=== PATIENT | male | born 1950 | race Caucasian/White ===

== ENCOUNTER 2020-06-23 23:55 | Emergency (ER) | payer MEDICARE, SELFPAY ==
--- NOTE | ~2020-06-23 | CT_ITS ---
EXAMINATION: CT brain wo con DATE: 06/24/2020 00:45 INDICATION: Weakness. Fall. TECHNIQUE: Computed tomography (CT) of the head was performed without intravenous contrast. The mA wa s adjusted according to patient size. Iterative reconstruction technique was employed. The dose-lengt h product was 756.67 mGy-cm. COMPARISON: None FINDINGS: There are scattered areas of low attenuation in the cerebral white matter. There is no intr acranial hemorrhage, acute infarction, or abnormal intracranial mass lesion. The ventricles are osiris l in size. There are likely changes of left ocular lens replacement surgery. There is mucosal thicken ing in the paranasal sinuses. There is sclerosis of the alan of right sphenoid sinus, consistent wit h chronic sinusitis. The mastoid air cells are normal. IMPRESSION: 1. Mild nonspecific cerebral white matter disease, which likely represents chronic small vessel ische wiliam disease. 2. Chronic sinusitis. Reviewed, dictated and finalized at location A. IMPRESSION: 1. Mild nonspecific cerebral white matter disease, which likely represents desk sergeant kemi small vessel ischemic disease. 2. Chronic sinusitis.
--- NOTE | ~2020-06-23 | CT_ITS ---
EXAMINATION: CT lumbar spine wo con DATE: 06/24/2020 00:46 INDICATION: Back pain. Fall. Weakness. TECHNIQUE: Computed tomography (CT) of the lumbar spine was performed without intravenous contrast. A utomated exposure control and iterative reconstruction technique were employed. The dose-length produ ct was 1492.47 mGy-cm. COMPARISON: None FINDINGS: There is 4 degrees levocurvature of lumbar spine. There is a chronic burst fracture of L4 w ith 2/5 loss of height and retropulsion of bone 3 mm into central spinal canal. There is a chronic bu rst fracture of L5 with 2/5 loss of height and retropulsion of bone 5 mm into central spinal canal. T here is mildly decreased disc height at L3-L4.. The following disc levels are specifically discussed: L1-L2: The disc is bulging. There is moderate bilateral facet joint osteoarthritis. There is mild luz elena ateral neural foraminal stenosis. There is mild central canal stenosis. L2-L3: The disc is bulging. There is moderate right and mild left facet joint osteoarthritis. There i s mild bilateral neural foraminal stenosis. There is mild central canal stenosis. L3-L4: The disc is bulging. There is severe bilateral facet joint osteoarthritis. There is moderate b ilateral neural foraminal stenosis. There is mild central canal stenosis. L4-L5: The disc is bulging. There is severe bilateral facet joint osteoarthritis. There is mild bilat eral neural foraminal stenosis. There is mild central canal stenosis. L5-S1: The disc is bulging. There is moderate right and severe left facet joint osteoarthritis. There is mild bilateral neural foraminal stenosis. There is mild central canal stenosis. IMPRESSION: 1. No acute fracture. 2. Moderate lumbar spondylosis. Reviewed, dictated and finalized at location A.
[2020-06-24 00:06] VITALS: BP 148/93; PULSE 91; RESP 18; TEMP 36.6; O2SAT 97
--- NOTE | 2020-06-24 00:18 | ECG_ITS ---
Measurements Intervals [place] Rate: 83 P: 13 IN: 143 QRS: 26 QRSD: 106 T: 28 QT: 392 QTc: 461 Interpretive Statements SINUS RHYTHM BASELINE ARTIFACT- I, II, III, AVR, AVL, AVF, V1-V6 NORMAL ECG Electronically Signed On 06-24-2020 7:13:06 CDT by Rich Sun D.O.
--- NOTE | 2020-06-24 00:25 | ED.WEAKNESS ---
HPI - Weakness General Chief complaint: Weakness Stated complaint: Fall Source: patient and EMS Mode of arrival: EMS Limitations: no limitations History of Present Illness HPI Narrative: This is a 69-year-old gentleman that presents after he had a fall out of his bed and hit his right forearm causing abrasion and a mild skin tear has good range of motion with no deformities of his right arm, the patient appears intoxicated he had 1 bottle of wine prior to going to bed earlier this evening. Currently not complaining of any chest pain, no shortness of breath no abdominal pain no headache no blurry vision. The patient is a chronic alcohol alcohol abuser and has been having some numbness and tingling in his lower extremities bilaterally although has good range of motion and good with good movement in his lower legs. Has been mentioning that he had a fall about 5 years ago while he was in [place] and since then has had some chronic low back issues and problems. Currently no fever chills no blurry vision no nausea vomiting no diarrhea constipation has a history of hypertension and chronic alcohol use. Also according to his primary care physician's notes he has been having a chronic peripheral neuropathy. MD Complaint: generalized weakness and numbness Onset (ago): month(s) Duration: intermittent Location: LLE and RLE Migration: none Severity: mild Quality: tingling and numbness Related Data Home Medications Medication Instructions Recorded Confirmed mecobalamin (vitamin B12) 1,000 1,000 mcg SUBLINGUAL DAILY 05/15/19 06/24/20 mcg disintegrating tablet,sublingual multivitamin,[id number] 1 tablet PO DAILY 05/15/19 06/24/20 thiamine HCl (vitamin B1) 100 mg 100 mg PO DAILY 05/15/19 06/24/20 tablet Allergies Allergy/AdvReac Type Severity Reaction Status Date / Time No Known Allergies Allergy Verified 05/15/19 10:30 Review of Systems Review of Systems: All systems reviewed & are unremarkable except as noted in HPI and below PMFSH Past Medical History Medical History Essential (primary) hypertension Neuropathy Family History Family History Mother Family history of malignant neoplasm Social History Social History Smoking status: Former smoker Second hand tobacco smoke exposure: No Smoking end date: 04/08/69 Alcohol intake: current Exam Const: General: no acute distress Limitations: altered mental status ( Appears intoxicated) HENMT: Head: normal to inspection Eyes: Conjunctivae: conjunctivae normal Pupils: Equal, round and reactive pupils present Direct Ophthalmoscopy: no photophobia Neck: Neck: normal visual inspection, no lymphadenopathy and no meningeal signs Chest: Chest palpation & inspection: normal inspection of the chest Resp: Effort & Inspection: normal respiratory effort Auscultation: clear to auscultation bilaterally Cardio: Rate: regular rate Rhythm: regular rhythm GI: GI Palp: Yes Soft to palpation Percussion: Yes normal to percussion Back/Spine/Pelvis: Back: no CVA tenderness Skin: General skin exam: normal color Other: skin tear and abrasion to his right forearm Neuro: General: moves all extremities, no meningeal signs and no focal motor deficits Extrem: General: normal to inspection and no pedal edema Psych: Appearance: disheveled Mental Status: mental status grossly normal Course Course Emergency Course: patient with some minor abrasion and skin tear to his right forearm, CT scans reviewed with patient and family as well as some lab results. Vital Signs Vital signs: Vital Signs Temperature 36.6 C 06/24/20 00:06 Pulse Rate 91 06/24/20 00:06 Respiratory Rate 18 06/24/20 00:06 Blood Pressure 148/93 H 06/24/20 00:06 Pulse Oximetry 97 06/24/20 00:06 Temperature 36.
[2020-06-24] MEDS: SODIUM CHLORIDE 0.9% IV 1,000 ML 999 ML IV CONT (00:50)
--- NOTE | 2020-06-24 01:00 | PC.NURSE ---
0101-Patient is unable to void at this time, urinal at bedside, patient will use call light to notify us when he is able to void.
[2020-06-24 01:07] LABS: Basophils Absolute Auto 0.05 K/mm3 (0.00-0.10); Basophils Percent Auto 0.6 % (0.0-1.0); Eosinophils Absolute Auto 0.13 K/mm3 (0.02-0.50); Eosinophils Percent Auto 1.7 % (1.0-6.0); Hematocrit 44.5 % (37.0-46.0); Hemoglobin 14.9 g/dL (12.4-15.3); Immature Granulocyte Absolute 0.05 K/mm3 (0.00-0.00); Immature Granulocyte Percent A 0.6 % (0.0-0.0); Lymphocytes Absolute Auto 1.89 K/mm3 (1.10-4.50); Lymphocytes Percent Auto 24.5 % (18.0-42.0); Mean Corpuscular HGB Conc 33.5 g/dL (32.0-36.0); Mean Corpuscular Hemoglobin 32.8 pg (27.0-31.0); Mean Platelet Volume 9.4 fl (8.7-11.0); Monocytes Absolute Auto 0.74 K/mm3 (0.10-0.90); Monocytes Percent Auto 9.6 % (2.0-11.0); Neutrophils Absolute Auto 4.9 K/mm3 (1.7-7.2); Platelet Count Result 195 K/mm3 (150-420); Red Blood Count 4.54 M/mm3 (4.70-6.10); White Blood Count 7.7 K/mm3 (4.8-10.8)
[2020-06-24 01:18] VITALS: BP 128/89; PULSE 88; RESP 20; O2SAT 98
[2020-06-24 01:26] LABS: Alanine Aminotransferase 89 U/L (16-63); Alkaline Phosphatase 57 U/L (46-116); Anion Gap 14 mmol/L (8-16); Aspartate Amino Transferase 66 U/L (15-37); Bilirubin,Total 0.4 mg/dL (0.00-1.00); Blood Urea Nitrogen 7 mg/dL (7-18); Calcium 8.4 mg/dL (8.5-10.1); Carbon Dioxide 25 mmol/L (21-32); Chloride 100 mmol/L (98-108); Creatine Kinase 247 U/L (39-308); Estimated CRCL calculation 76 ml/min; Estimated Glomerular Filt Rate > 60; Glucose 104 mg/dL (70-99); Lactic Acid Reflex 2.1 mmol/L (0.4-2.0); Osmolality Calculated 286 mOsm/kg (285-295); Potassium 3.8 mmol/L (3.5-5.1); Sodium 139 mmol/L (136-145); Troponin I 7.7 ng/L (0.00-60.4)
[2020-06-24 01:27] LABS: Ammonia < 10 umol/L (11-32)
[2020-06-24 01:28] LABS: Ethanol 204 mg/dL (0-6)
--- NOTE | 2020-06-24 01:33 | PC.NURSE ---
0015-Patients wounds cleaned on right arm, one small wound on upper right arm, one small wound on lower forearm. I used Safe cleanse, sterile 4x4's,and 3x8 in, 2x3 in telfa pads and wrapped it with 4in conforming stretchy wrap. Patient tolerated well.
[2020-06-24 01:39] LABS: Add Urine Microscopic? NO; Appearance Urine Clear (Clear); Bilirubin Urine Negative (Negative); Blood Urine Negative (Negative); Color Urine Yellow (Yellow); Glucose Urine UA Negative (Negative); Ketones Urine Negative (Negative); Leukocyte Esterase Ur Negative LEU/UL (Negative); Nitrate Urine Negative (Negative); Protein Urine Negative (Negative); Specific Grav Ur <= 1.005 (1.010-1.020); Urobilinogen Urine 0.2 mg/dL (0.2-1.0)
[2020-06-24 01:54] VITALS: BP 141/96; PULSE 93; RESP 20; TEMP 36.6; O2SAT 95
== END 2020-06-24 01:59 | disposition home or self-care (01) ==
PROVIDERS: Emergency Provider Emergency Medicine; PCP Internal Medicine
DX: F10.129 Alcohol abuse with intoxication, unspecified (principal); G62.9 Polyneuropathy, unspecified; R41.82 Altered mental status, unspecified; S51.811A Laceration without foreign body of right forearm, initial encounter; S50.811A Abrasion of right forearm, initial encounter; I10 Essential (primary) hypertension; Z87.891 Personal history of nicotine dependence; W06.XXXA Fall from bed, initial encounter
CPT/HCPCS: 36415; 70450; 72131; 80053; 80307; 81003; 82140; 82550; 83605; 84484; 85025; 87040; 93005; 96360; 99283; 99284; J7030

== ENCOUNTER 2021-10-10 10:49 | Outpatient (RCR) | payer MEDICARE, SELFPAY ==
--- NOTE | 2021-10-10 12:46 | PTOPEVAL ---
Thank you for referring Miguel A Carr to [facility].? The patient is scheduled to be seen for therapy? ____x/week for ___ weeks. Please review, sign, date and return this plan of care AJ. I agree with and certify that the following plan of care is medically necessary. Referring Physician Date Admitting Provider: Attending Provider: Ty Rodriguez Referring Provider: DEBBIE Outpatient Evaluation Start: 10/10/21 10:59 Freq: Status: Active Protocol: Document 10/10/21 11:05 Tj (Rec: 10/10/21 12:44 [facility] [email or web address]) Therapy Assessment Status Assessment Status Assessment Status Evaluation Outpatient Past Medical History Neurological History Hx Other Neurological Disorders Yes: peripheral neuropathy Cardiovascular History Hx Hypertension Yes Gastrointestinal History Hx Hernia Yes: Inguinal repair Evaluation Information Problem Diagnosis parkinsons Onset 09/28/21 Subjective Information patient reports he has been Query Text:As Reported By Patient/ having tremors for about 5 Family years. 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 he reports he used to be an avid runner. he reports he noticed his walking began to get slower and he began to fall. he reports he did notice his shuffling steps shortly after that incident. he reports he does still drive from time to time. he reports he struggles badly when having to get up in the middle of the night. he reports he sleeps in a recliner and uses a handheld urinal at night. he reports his most recent fall was about a month and a half ago. Prior Level of Function Comments Additional Prior Level of Function patient reports he has been Comments functionally declining for about 5-6 years. Pain Assessment Timing of Pain Assessment Timing of Pain Assessment Assessment Self Report Self Report Pain Level 0 Pain Score Pain Score 0: Self Report Lower Extremity Muscle Strength Testing General Lower Extremity Strength Gross Lower Extremity Strength 4/5 bilateral sitting hip flex 4+/5 bilateral knee flex and ext 4+/5 R ankle DF
--- NOTE | 2021-11-09 13:18 | PTOPEVAL ---
Thank you for referring Miguel A Carr to [facility].? The patient is scheduled to be seen for therapy? ____x/week for ___ weeks. Please review, sign, date and return this plan of care AJ. I agree with and certify that the following plan of care is medically necessary. Referring Physician Date Admitting Provider: Attending Provider: Ty Rodriguez Referring Provider: DEBBIE Outpatient Evaluation Start: 10/10/21 10:59 Freq: Status: Active Protocol: Document 11/09/21 11:00 Tj (Rec: 11/09/21 11:50 [facility] [id number]) Therapy Assessment Status Assessment Status Assessment Status Progress Outpatient Past Medical History Neurological History Hx Other Neurological Disorders Yes: peripheral neuropathy Cardiovascular History Hx Hypertension Yes Gastrointestinal History Hx Hernia Yes: Inguinal repair Evaluation Information Problem Diagnosis parkinsons Onset 09/28/21 Subjective Information patient reports he is Query Text:As Reported By Patient/ continuing to have trouble Family with walking mostly. he reports he gets stuck during turns and trying to get up and get going, as well as, going to sit. Pain Assessment Timing of Pain Assessment Timing of Pain Assessment Assessment Self Report Self Report Pain Level 0 Pain Score Pain Score 0: Self Report Balance Assessment Time Up Go (TUG) Timed Up and Go Test (TUG) (Seconds) 52 Assistive Devices None Comments CGA for safety. patient gets stuck during turns and takes several seconds to get started walking again. he shuffles feet during initial turn and then is completely stopped for several seconds. 5 Time Sit to Stand Time in Seconds 10 5 Time Sit to Stand Comments patient perform sit to stand Query Text:Normative Data: If Greater quicker and without UE assist Than 15 Seconds, 74% Increase Risk for to push up to standing. Recurrent Falls however, unsafe sitting to chair without using UE's to control descent and flopping into chair. Gait Assessment 2 Minute Walk 2 Minute Walk Test Comments no AD, patient completes 160ft in 2 minutes with 3 bouts of freezing during ambulation, poor foot/heel clearance, and shuffling when nearing his
--- NOTE | 2021-11-23 20:48 | PTOPEVAL ---
Thank you for referring Miguel A Carr to [facility].? The patient is scheduled to be seen for therapy? ____x/week for ___ weeks. Please review, sign, date and return this plan of care AJ. I agree with and certify that the following plan of care is medically necessary. Referring Physician Date Admitting Provider: Attending Provider: Ty Rodriguez Referring Provider: LynnPT Outpatient Evaluation Start: 10/10/21 10:59 Freq: Status: Active Protocol: Document 11/16/21 11:00 [facility] (Rec: 11/16/21 11:47 [facility] [email or web address]) Therapy Assessment Status Assessment Status Assessment Status Discharge Outpatient Past Medical History Neurological History Hx Other Neurological Disorders Yes: peripheral neuropathy Cardiovascular History Hx Hypertension Yes Gastrointestinal History Hx Hernia Yes: Inguinal repair Evaluation Information Problem Diagnosis parkinsons Onset 09/28/21 Subjective Information patient and reports Query Text:As Reported By Patient/ improvements seen in patient. Family he reports he has not fallen since beginning therapy. he reports he continues to be frustrated by his freezing episodes and not being able to walk. he reports he does not wanthis meds adjusted. Pain Assessment Timing of Pain Assessment Timing of Pain Assessment Assessment Self Report Self Report Pain Level 0 Pain Score Pain Score 0: Self Report Lower Extremity Muscle Strength Testing General Lower Extremity Strength Gross Lower Extremity Strength 4+/5 bilateral hip flex 5/5 bilateral hip abd sitting 5/5 bilateral knee flex and ext 4+/5 R ankle DF 4+/5 L ankle DF Balance Assessment Tinetti Balance Assessment Sitting Balance Steady, safe Ability to Arise Able, uses arms to help Attempts to Arise Arises on 1st attempt Immediate Standing Balance Steady w/o support Standing Balance Steady, wide stance Nudged Response Staggers, catches self Standing with Eyes Closed Steady Step Pattern Turning 360 Degrees Discontinuous steps Stability Turning 360 Degrees Unsteady, grabs/staggers Sitting Down Uses arms or unsteady Initiation of Gait Hesitancy, mult. attempts Right Foot Step Length Does not pass stance ft. Right Foot Step Height Does not clear floor Left Foot Step Length Does not pass stance foot Left Foot Step He
== END 2021-11-16 11:21 | disposition home or self-care (01) ==
LOC: CHSPT 10:49
PROVIDERS: PCP Internal Medicine
DX: G20 Parkinson's disease (principal); G62.1 Alcoholic polyneuropathy
CPT/HCPCS: 97110; 97116; 97162; 97530

== ENCOUNTER 2022-08-04 15:22 | Emergency (ER) | payer MEDICARE, SELFPAY ==
[2022-08-04 15:29] VITALS: BP 186/110; PULSE 93; RESP 20; TEMP 36.9; O2SAT 97
[2022-08-04 15:40] VITALS: PULSE 90
[2022-08-04] MEDS: LABETALOL HCL INJ 100 MG/20 ML VIAL 10 MG IV PUSH (15:47)
[2022-08-04] MEDS: SODIUM CHLORIDE 0.9% IV 1,000 ML 999 ML IV CONT (15:48)
[2022-08-04 16:09] LABS: Basophils Absolute Auto 0.05 K/mm3 (0.00-0.10); Basophils Percent Auto 0.5 % (0.0-1.0); Eosinophils Absolute Auto 0.09 K/mm3 (0.02-0.50); Eosinophils Percent Auto 0.9 % (1.0-6.0); Hematocrit 42.9 % (37.0-46.0); Hemoglobin 14.5 g/dL (12.4-15.3); Immature Granulocyte Absolute 0.04 K/mm3 (0.00-0.00); Immature Granulocyte Percent A 0.4 % (0.0-0.0); Lymphocytes Absolute Auto 1.52 K/mm3 (1.10-4.50); Lymphocytes Percent Auto 15.9 % (18.0-42.0); Mean Corpuscular HGB Conc 33.8 g/dL (32.0-36.0); Mean Corpuscular Volume 100.5 fL (78.0-102.0); Mean Platelet Volume 9.5 fl (8.7-11.0); Monocytes Absolute Auto 0.88 K/mm3 (0.10-0.90); Monocytes Percent Auto 9.2 % (2.0-11.0); Neutrophils Percent Auto 73.1 % (50.0-70.0); Platelet Count Result 211 K/mm3 (150-420); Red Blood Count 4.27 M/mm3 (4.70-6.10); Red Cell Distribution Width 12.4 % (11.6-14.4); White Blood Count 9.5 K/mm3 (4.8-10.8)
[2022-08-04] MEDS: CARBIDOPA/LEVODOPA 25/100 MG TABLET 1 TABLET PO (16:13)
[2022-08-04 16:23] LABS: Albumin Level 3.6 g/dL (3.4-5.0); Alkaline Phosphatase 57 U/L (46-116); Anion Gap 12 mmol/L (8-16); Aspartate Amino Transferase 29 U/L (15-37); Bilirubin,Total 0.7 mg/dL (0.00-1.00); Blood Urea Nitrogen 7 mg/dL (7-18); Calcium 8.7 mg/dL (8.5-10.1); Carbon Dioxide 25 mmol/L (21-32); Chloride 99 mmol/L (98-108); Estimated CRCL calculation 67 ml/min; Estimated Glomerular Filt Rate > 60; Ethanol 11 mg/dL (0-6); Glucose 106 mg/dL (70-99); Osmolality Calculated 280 mOsm/kg (285-295); Potassium 3.8 mmol/L (3.5-5.1); Sodium 136 mmol/L (136-145); Total Protein 7.3 g/dL (6.4-8.2)
[2022-08-04 16:24] LABS: Alanine Aminotransferase < 6 U/L (16-63)
[2022-08-04 16:34] VITALS: BP 170/100; PULSE 88; RESP 20; O2SAT 95
[2022-08-04 16:50] LABS: Appearance Urine Clear (Clear); Bilirubin Urine Negative (Negative); Blood Urine Negative (Negative); Color Urine Light Yellow (Yellow); Glucose Urine UA Negative (Negative); Ketones Urine Negative (Negative); Leukocyte Esterase Ur Negative LEU/UL (Negative); Nitrate Urine Negative (Negative); Protein Urine Negative (Negative); Specific Grav Ur 1.015 (1.010-1.020); Urobilinogen Urine 0.2 mg/dL (0.2-1.0)
[2022-08-04 16:52] LABS: Add Urine Microscopic? NO
--- NOTE | 2022-08-04 16:57 | ED.GENADULT ---
HPI - General Adult General Chief complaint: Weakness Stated complaint: weakness Time Seen by Provider: 08/04/22 15:29 History of Present Illness HPI narrative: 71yo man history of alcohol abuse and dependence, and of parkinsonism on sinemet, presents with feeling very fatigued. No fevers or chills. No pain. No focal weakness or numbness. Has baseline ait instability, tremor, and bilateral symmetric diabetic neuropathy at baseline. Today he drank three glasses of wine. Has no interest in quitting alcohol. Related Data Allergies Allergy/AdvReac Type Severity Reaction Status Date / Time No Known Allergies Allergy Verified 05/04/22 09:47 Review of Systems Review of Systems: All systems reviewed & are unremarkable except as noted in HPI and below Constitutional: Constitutional: Denies fever(s) ENT: Denies vertigo Cardiovascular: Cardiovascular: Denies chest pain Respiratory: Respiratory: Denies dyspnea PMFSH Past Medical History Medical History Essential (primary) hypertension Neuropathy Parkinson disease Pure hypercholesterolemia Surgical History Surgical History H/O right inguinal hernia repair History of surgical removal of skin lesion Dr. Alvarez Family History Family History Mother Family history of malignant neoplasm Social History Social History Smoking status: Former smoker Tobacco type: cigarettes Second hand tobacco smoke exposure: No Smoking end date: 04/08/69 Alcohol intake: current Drinks per week: 6 Alcohol use details: drinks wine Substance use: never Lack of Transportation: No Lack of Food: Never True Current Housing: I Have Housing Concerned About Future Housing: No Difficulty Paying Gas/Electric Bills: No Difficulty Paying for Meds: No Currently Unemployed: No Education: Master's Degree or Higher Difficulty w/ Childcare or Family Care: No Living arrangements: with family Occupation/Education: retired Additional occupation/education comments: Chiropractor Exam Const: General: healthy appearing Nutritional Appearance: well nourished Orientation/consciousness: patient oriented x3 HENMT: Head: normal to inspection, no contusions, no hematomas and no lacerations Eyes: Conjunctivae: conjunctivae normal Pupils: Equal, round and reactive pupils present EOM: EOMs intact bilaterally Neck: Neck: normal visual inspection Other: supple Chest: Chest palpation & inspection: normal inspection of the chest Resp: Effort & Inspection: normal respiratory effort Auscultation: clear to auscultation bilaterally Cardio: Rate: regular rate Rhythm: regular rhythm GI: Inspection: non-distended GI Palp: Yes Soft to palpation and No Tenderness to palpation present (GI) Skin: General skin exam: normal color, no jaundice and no pallor Neuro: General: patient oriented x3, moves all extremities, no focal motor deficits and CN's II-XI intact bilaterally Speech: normal speech Extrem: General: normal to inspection and edema Other: minimal pedal edema Course Vital Signs Vital signs: Vital Signs Temperature 36.9 C 08/04/22 15:29 Pulse Rate 93 08/04/22 15:29 Respiratory Rate 20 08/04/22 15:29 Blood Pressure 186/110 H 08/04/22 15:29 Pulse Oximetry 97 08/04/22 15:29 Oxygen Delivery Room Air 08/04/22 15:29 Temperature 36.9 C 08/04/22 15:29 Pulse Rate 88 08/04/22 16:34 Respiratory Rate 20 08/04/22 16:34 Blood Pressure 170/100 H 08/04/22 16:34 Pulse Oximetry 95 08/04/22 16:34 Oxygen Delivery Room Air 08/04/22 16:34 Medical Decision Making MDM Narrative Medical decision making narrative: malaise and fatigue DDx occult infection, alcohol intoxication, uncontrolled parkinso
[2022-08-04] MEDS: lisinopriL 10 MG TABLET PO (17:19)
[2022-08-04 17:21] VITALS: BP 160/90; PULSE 90; RESP 20; TEMP 37; O2SAT 97
== END 2022-08-04 17:57 | disposition home or self-care (01) ==
PROVIDERS: Emergency Provider Emergency Medicine
DX: R53.81 Other malaise (principal); R53.83 Other fatigue; I10 Essential (primary) hypertension; E11.40 Type 2 diabetes mellitus with diabetic neuropathy, unspecified; G20 Parkinson's disease; Z87.891 Personal history of nicotine dependence; Z79.899 Other long term (current) drug therapy
CPT/HCPCS: 36415; 80053; 80307; 81003; 85025; 96361; 96374; 99284; A9270; J7030

== ENCOUNTER 2024-09-17 16:29 | Emergency (ER) | payer MEDICARE, SELFPAY ==
[2024-09-17 16:31] VITALS: BP 175/109; PULSE 99; RESP 18; TEMP 37.1; O2SAT 97
--- OUTSIDE RECORDS SUMMARY | 2024-09-17 16:32 | XMS_ITS | Clinical Summary ---
Author Organization [facility] Building [address] Address [address] [place] [address] Care Team Providers Care Svp Innovation Partnerships Name Role Phone Paulie Shaw MD Primary Care Provider +1- [phone] Allergies No known active allergies Medications atenoloL (TENORMIN) 50 mg tablet Take 50 mg by mouth daily 10/21/2020 Active carbidopa-levod opa (SINEMET) 25-100 mg per tabletIndicatio ns:Parkinson disease (HCC) TAKE 2 TABLETS BY MOUTH THREE TIMES DAILY 180 tablet 11/12/2022 Active Active Problems Problem Noted Date Diagnosed Date Neuropathy, 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 I reviewed alcohol could worsen idiopathic neuropathy although it remains my opinion this is likely due to his drinking and encouraged reduction. Call if change/issue Assessment & Plan (11/02/2020 3:45 PM CDT): He has neuropathy in stocking glove distribution in hands and feet that he has noticed for many years. I suspect this is alcoholic. I did recommend some additional lab testing to rule out alternate contributors, particularly nutritional deficiency in setting of his alcohol intake. It is currently not painful I encouraged reduced alcohol intake to avoid progression. Parkinson disease 11/02/2020 Assessment & Plan (06/28/2021 2:27 PM CDT): Continues to have problematic symptoms, mainly related to gait freezing/initiation issues, although with right > left sided parkinsonism He is not sure how much medication helps, reporting he does seems to feel better after he takes the medication, but also that he feels best just prior to dosing. He continues to fall and has been working on fall prevention. I encouraged continued efforts to address this (and his neuropathy and alcoholism are likely contributing to his falling as well). He does report several head images in last few years, unavailable to me, and I offered to review them or for one of my partners to review them if they bring them to future visits. We discussed increase in medication, but he preferred to defer increase at this time and continue 2 tabs TID. He will call if interested in increase in the interim RTC in 3-6 months, will schedule in office here, but may consider follow-up at [place] since I am leaving, although option for [facility] was also discussed. Assessment & Plan (02/08/2021 2:14 PM CDT): Continues to have right resting tremor, bradykinesia and has prominent shuffling gait/freezing of gait during exam today. He has had several falls in interim. I suggested increase to 2 tabs TID, and he is in favor of not cutting tablets Will do this for 2 weeks and update me if change/issue. He will look for nausea/light-headedness with standing Emphasized importance of fall prevention Referred for PT RTC in 3-6 months (patient expresses concern about coming in worst of winter, so allowed for him to schedule at his comfort and call for change/updates in interim). Assessment & Plan (11/02/2020 3:49 PM CDT): He has right predominant resting tremor, cogwheel rigidity, decreased arm swing consistent with likely idiopathic PD Additionally, he has seen benefit to CD/LD 10/100 1 tab TID. I suggested switching to CD/LD 25/100 which I have found will be better tolerated as we increase, and increase to 1.5 tabs TID for improved control I reviewed fall prevention and option of LVST for PD. He reports he exercises regularly at home and will continue this. I suggested they call in a few weeks to discuss response to increase. Chronic hepatitis C virus infection 09/06/2014 Continuous chronic alcoholism 09/06/2014 Assessment & Plan (02/08/2021 2:12 PM CDT): Has switched to 4 beers per day from wine. I continued to encourage efforts to reduce number of drinks. I expressed concern about risk of falls and terminologist effects of heavy alcohol use. He emphasizes that he used to drink much more. He appears pre-contemplative. Assessment & Plan (11/02/2020 3:44 PM CDT): Reviewed that is 4 glasses of wine per day qualify as heavy alcohol use, which he is shocked by and points out all the drinking he sees other people doing. He disputes that wine is a concern I dont' drink liquor does report a series of seizures during hospitalization several years back, and I question whether these were alcohol withdrawal seizures. At last labs in June, ETOH level 200, twice legal limit. This was drawn at 1 pm. I encouraged efforts to reduce this, which seemed very supportive of, although he appears to be precontemplative. Hypertension 09/06/2014 Hypersplenism 09/06/2014 Thrombocytopenia 09/06/2014 Surgical History Surgery Date Site/Laterality Comments CATARACT EXTRACTION 04/08/2011 - 04/07/2012 Medical History Medical History Date Comments Hypertension Alcohol abuse Neuromuscular disorder (HCC) 2016 Family History Medical History Relation Name Comments Atrial fibrillation Brother Alzheimer's disease Mother Heavenly Diabetes Mother Heavenly Family history of diabetes mellitus - (Added by TW Conv) Brain cancer Sister Relation Name Status Comments Brother Alive Father Mother Heavenly Sister Social History Tobacco Use Types Packs/Day Years Used Date Smoking Tobacco: Former Smokeless Tobacco: Never Personal Safety Answer Date Recorded Getting School Help Needed Not on file 06/02 Sex and Gender Information Value Date Recorded Sex Assigned at Not on file 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 Gender Identity Not on file Sexual Orientation Not on file Obstetrics History Last Filed Vital Signs Vital Sign Reading Time Taken Comments Blood Pressure 124/72 09/28/2021 12:47 PM CDT Pulse 66 09/28/2021 12:47 PM CDT Temperature - - Respiratory Rate 16 09/28/2021 12:47 PM CDT Oxygen Saturation - - Inhaled Oxygen Concentration - - Weight 89.8 kg (198 lb) 09/28/2021 12:47 PM CDT Height 185.4 cm (6' 1) 09/28/2021 12:47 PM CDT Body Mass Index 26.12 09/28/2021 12:47 PM CDT Plan of Treatment Health Maintenance Due Date Last Done Comments Colon Cancer Screening-Colonoscopy 1948 Depression Screening 1948 Fall Risk Assessment 1948 DTaP/Tdap/Td Vaccine (1 - Tdap) 12/22/1959 Hepatitis B Screening 1966 Pneumococcal vaccine 65+ (1 of 2 - PCV) 12/22/1967 Zoster Vaccine (1 of 2) 1998 Abdominal Aortic Aneurysm (AAA) Screen 2013 Well Visit 65+ 2013 Influenza Vaccine (Season Ended) 2024 Hepatitis C Screening Completed 09/06/2014, 015 Insurance [facility] Care Teams Svp Innovation Partnerships Relationship Specialty Start Date End Date Paulie Shaw MD [address] [facility] [address] [place] [address] PCP - General Internal Medicine 10/07/20
--- OUTSIDE RECORDS SUMMARY | 2024-09-17 16:32 | XMS_ITS | Continuity of Care Document ---
Author Organization [facility] Address [address] [place] [address] [place] [address] Phone Care Team Providers Care Sample Body Builder Name Role Phone Ang Mustafa Unavailable Unavailable Procedures Procedure Date Office/outpatient Visit, [facility] Advance Directives Directive Yes / No Effective Date File Name No Information Encounters Encounter Description Practice Location Reason(s) For Visit Diagnoses Date Provider Providers Copied on Encounter Office/outpat ient Visit, [facility], [address], [place], [place], [id number], [place] tel:[phone] [facility] No Information [address] [facility] [address], [place], [address], [place]. tel:[phone] Family History Family Member Type Diagnosis Age At Onset No Information Payers Payer name Insurance type Covered republican ID Authoriza tiliza(s) BCBS [place] Out Of State [id number] Social History Type Description Quantity Date Captured Comments Sex Male Smoking Status No Information Chief Complaint And Reason For Visit No Information Reason For Referral Reason For Referral No Information History Of Present Illness Encounter Date Complaint History Of Prese nt Illness No Information Functional Status Date Functional Assessmen t No Information Instructions Date Instruction Additional Infor mation No Information Assessments Type Assessment Date No Information Patient Care Teams Name Effective Dates (start - stop) Status Members No Information
--- OUTSIDE RECORDS SUMMARY | 2024-09-17 16:32 | XMS_ITS | Continuity of Care Document ---
Author Name [facility] Organization [facility] Care Team Providers Care Budget Accountant Name Role Phone [facility] Unavailable Unavailable Encounters Combined list of: 1) Encounters from Department of Veterans Affairs facilities going backup to the last 18 months, not all VA inpatient encounters are included; 2) Encounters from the Department of Defense facilities going backup to 280 months. Location Location Details Encounter Type Encounter Number Reason For Visit Attending Provider ADM Date DC Date Status Disposition Source [facility] Outpatient Encounter [id number] 01/10 [facility]
--- OUTSIDE RECORDS SUMMARY | 2024-09-17 16:32 | XMS_ITS | Referral Summary ---
Author Organization [facility] [address] Address [address] [facility] [place] [address] Care Team Providers Care Oil Program Compliance Specialist Name Role Phone Paulie Shaw MD Primary Care Provider [phone]- [phone] Allergies No known active allergies Medications atenoloL [...] office here, but may consider follow-up at [place] since I am leaving, although option for [facility] was also discussed. Assessment & Plan (02/08/2021 [...] expressed concern about risk of falls and ferry terminal supervisor effects of heavy alcohol use. He emphasizes [...] precontemplative. 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
[2024-09-17] MEDS: cloNIDine HCL 0.1 MG TABLET PO (16:53)
--- NOTE | 2024-09-17 17:05 | PC.NURSE ---
Pt given yaunker at low-medium suction to utilize in mouth for gum bleeding. Pt encouraged to swish slowly with cold water and then suction around tongue and lips only, as to not touch tooth removal sites. Pt was then given gauze rolls to place between lower teeth and upper gums to bite down and create pressure.
--- OUTSIDE RECORDS SUMMARY | 2024-09-17 17:05 | XMS_ITS | Continuity of Care Document ---
Author Organization [facility] Address [address] [place] [address] [place] [address] Phone Care Team Providers Care Structured Cabling Technician Name Role Phone Ang Mustafa Unavailable Unavailable Procedures Procedure Date Office/outpatient Visit, [facility] Advance Directives Directive Yes / No Effective Date File Name No Information Encounters Encounter Description Practice Location Reason(s) For Visit Diagnoses Date Provider Providers Copied on Encounter Office/outpat ient Visit, [facility], [address], [place], [place], [id number], [place] tel:[phone] [facility] No Information [address] [facility] [address], [place], [address], [place]. tel:[phone] Family History Family Member Type Diagnosis Age At Onset No Information Payers Payer name Insurance type Covered green party ID Authoriza tiliza(s) [place] Out Of State [id number] Social History Type Description Quantity Date Captured [...]
--- OUTSIDE RECORDS SUMMARY | 2024-09-17 17:05 | XMS_ITS | Clinical Summary ---
Author Organization [facility] Building [address] Address [address] [facility] [place] [address] Care Team Providers Care Lamination Assembler Name Role Phone Paulie Shaw MD Primary Care Provider +1- [phone] Allergies No known active allergies Medications atenoloL [...] office here, but may consider follow-up at [place] since I am leaving, although option for [facility] was also discussed. Assessment & Plan (02/08/2021 [...] expressed concern about risk of falls and roasterman effects of heavy alcohol use. 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
--- OUTSIDE RECORDS SUMMARY | 2024-09-17 17:05 | XMS_ITS | Referral Summary ---
Author Organization [facility] Building [address] Address [address] [facility] [place] [address] Care Team Providers Care Curriculum Director Name Role Phone Paulie Shaw MD Primary Care Provider +1- [phone] Allergies No known active allergies Medications atenoloL [...] office here, but may consider follow-up at [place] since I am leaving, although option for [facility] was also discussed. Assessment & Plan [...] expressed concern about risk of falls and intermediate teacher effects of heavy alcohol use. He emphasizes [...] on file Legal Sex Male 11:59 PM CARDIOLOGY SPECIALIST Gender Identity Not on file Sexual Orientation [...] of Treatment Not on file [facility] Care Teams Curriculum Director Relationship Specialty Start Date End Date Paulie Shaw MD [address] [facility] [address] [place] [address] PCP - General Internal Medicine 10/07/20
[2024-09-17] MEDS: hydrALAZINE HCL 25 MG TABLET PO (18:08)
--- NOTE | 2024-09-17 18:08 | ED.DENTAL ---
HPI - Dental/Oral General Chief complaint: Dental/Oral Stated complaint: tooth Time Seen by Provider: 09/17/24 16:41 Source: patient and family Mode of arrival: ambulatory Limitations: no limitations History of Present Illness HPI Narrative: this is a 73-year-old male with history of hypertension and Parkinson's disease had a tooth extraction earlier this morning and had dry packing that patient and family were told that they can remove at around 2:30 a.m. this afternoon wants it removed it pulled off the clot and started bleeding, the patient is currently not on any blood thinners. Has no fever chills no pain or discomfort. Teeth map:  1. dental extraction and bleeding from the gum line Onset (ago): hour(s) Duration: constant Severity: mild Related Data Allergies Allergy/AdvReac Type Severity Reaction Status Date / Time No Known Allergies Allergy Verified 09/17/24 16:33 Review of Systems Review of Systems: All systems reviewed & are unremarkable except as noted in HPI and below PMFSH Past Medical History Medical History REM behavioral disorder Parkinson disease Essential (primary) hypertension Neuropathy Pure hypercholesterolemia Surgical History Surgical History H/O right inguinal hernia repair History of surgical removal of skin lesion Dr. Alvarez Family History Family History Mother Family history of malignant neoplasm Social History Social History Smoking status: Former smoker Tobacco type: cigarettes Second hand tobacco smoke exposure: No Smoking end date: 04/08/69 Alcohol intake: current Drinks per week: 6 Alcohol use details: drinks wine Substance use: never Lack of Transportation: No Lack of Food: Never True Current Housing: I Have Housing Concerned About Future Housing: No Difficulty Paying Gas/Electric Bills: No Difficulty Paying for Meds: No Currently Unemployed: No Education: Master's Degree or Higher Difficulty w/ Childcare or Family Care: No Living arrangements: with family Occupation/Education: retired Additional occupation/education comments: Chiropractor Exam Const: General: healthy appearing, no acute distress and alert Nutritional Appearance: well nourished Orientation/consciousness: patient oriented x3 Limitations: no limitations HENMT: Head: normal to inspection Other: Bleeding from the left upper tooth area the gumline Neck: Neck: normal visual inspection Chest: Chest palpation & inspection: normal inspection of the chest Resp: Effort & Inspection: normal respiratory effort Auscultation: clear to auscultation bilaterally Cardio: Rate: regular rate Rhythm: regular rhythm Skin: General skin exam: normal color Rashes: no rashes Extrem: General: normal to inspection and no clubbing, cyanosis or edema Course Course Emergency Course: patient with elevated blood pressure received 0.1 mg p.o. clonidine, an additional 25mg p.o. hydralazine to lower blood pressure. Packing soaked gauze used to pack the the dental extraction area left upper mouth area and currently a clot is formed and no current bleeding. Vital Signs Vital signs: Vital Signs Temperature 37.1 C 09/17/24 16:31 Pulse Rate 99 09/17/24 16:31 Respiratory Rate 18 09/17/24 16:31 Blood Pressure 175/109 H 09/17/24 16:31 Pulse Oximetry 97 09/17/24 16:31 Oxygen Delivery Room Air 09/17/24 16:31 Temperature 37.1 C 09/17/24 16:31 Pulse Rate 99 09/17/24 16:31 Respiratory Rate 18 09/17/24 16:31 Blood Pressure 175/109 H 09/17/24 16:31 Pulse Oximetry 97 09/17/24 16:31 Oxygen Delivery Room Air 09/17/24 16:31 Critical Care Time Critical Care Time Critical Care Time: No Discharge Plan Discharge Clinical Impression: Surgical wound hemorrhage after dental procedure Patient Disposition: Home Condition: Stable Instructions: Antibiotic Form, Acute Dental Trauma (ED) Additional Instructions: advised to continue water soaked gauze packing to affected area and to follow with Primary our dentist within the next 2 to 3 days. Patient Language: Indonesian Prescriptions: No Action atenolol 50 mg tablet 25 mg PO DAILY Qty: 90 3RF Patient Comments: pt unsure if took today carbidopa-levodopa 25-100 mg tablet 1 tablet PO TID Qty: 90 6RF Rx Instructions: 1 tablet orally three times a day; carbidopa-levodopa 50-200 mg tablet extended release 1 tablet PO TID Qty: 90 4RF Rx Instructions: divide evenly over waking hours lisinopril 10 mg tablet 10 mg PO DAILY Qty: 90 2RF Follow-up/Referrals: Gino Zavaleta DO [Primary Care Provider] - Stand Alone Forms: Work/School Release IP Time of Disposition: 18:12
[2024-09-17 18:30] VITALS: BP 180/90; PULSE 90
[2024-09-17 18:31] VITALS: BP 190/107; PULSE 90
--- NOTE | 2024-09-17 18:32 | PC.NURSE ---
Pt encouraged to stay for further assessment of blood pressure after medications given, however pt adamant to go home and rest. Discharge information has been given to pt and demonstrates understanding. Encouraged to return for any worsening symptoms.
== END 2024-09-17 18:38 | disposition home or self-care (01) ==
PROVIDERS: Emergency Provider Emergency Medicine; PCP Internal Medicine
DX: L76.22 Postprocedural hemorrhage of skin and subcutaneous tissue following other procedure (principal); I10 Essential (primary) hypertension; G20.A1 Parkinson's disease without dyskinesia, without mention of fluctuations; Z87.891 Personal history of nicotine dependence
CPT/HCPCS: 99283; A9270